=== PATIENT | female | born 1955 | race Caucasian/White ===

== ENCOUNTER 2018-08-20 23:43 | Emergency (ER) | payer OTHER ==
[2018-08-21 00:41] LABS: Absolute Neutrophil 3.6 K/uL (1.8-8.0); Basophils % 0.9 % (0-1.3); Eosinophils % 9.2 % (0-4.4); Hematocrit 31.7 % (36.0-45.0); Lymphocytes % 35.2 % (15.3-44.8); MCH 37.7 pg (27.0-35.0); MCV 106.1 fL (80-100); MPV 7.4 fL (7.6-11.3); Monocytes % 11.8 % (3.3-12.3); RBC Red Blood Cell Count 2.99 M/uL (3.86-4.86)
[2018-08-21] MEDS ORDERED: NA CHLORIDE 0.9% 1,000 ML ONE (00:41)
[2018-08-21 00:45] LABS: Protime INR 1.04
[2018-08-21 01:03] LABS: ALT/SGPT 39 U/L (12-78); AST/SGOT 25 U/L (15-37); Albumin 3.4 g/dL (3.4-5.0); Alkaline Phosphatase 70 U/L (45-117); BUN Blood Urea Nitrogen 13 mg/dL (7-18); Bicarbonate 24 mmol/L (21-32); Bilirubin Direct 0.1 mg/dL (0-0.2); Bilirubin Total 0.2 mg/dL (0.2-1.0); Glucose Level 102 mg/dL (74-106); Lipase 141 U/L (73-393); Magnesium 1.8 mg/dL (1.8-2.4); NT PRO-BNP 23 pg/mL (<125); Protein, Total 6.9 g/dL (6.4-8.2); Sodium Level 133 mmol/L (136-145); Troponin (Emerg Dept Use Only) < 0.02 ng/mL (0.0-0.045)
--- NOTE | 2018-08-21 01:29 | EDPHYS ---
Physician Documentation [facility] Name: Nelly Nava Age: 63 yrs Sex: Female : 1955 Arrival Date: 08/20/2018 Time: 23:44 Bed 7 Private MD: Yahaira Ness ED Physician Javi Vieyra HPI: 08/21 00:06 This 63 yrs old Female presents to ER via Ambulatory with complaints of art FLANK/CHEST WALL CONTRACTIONS. 00:06 The patient or guardian reports chest pain that is located primarily in the substernal art area, epigastric area, anterior chest wall. Onset: 3 day(s) ago. The patient presents with abdominal pain in the upper abdomen, in the lower abdomen, abdominal distention. Onset: The symptoms/episode began/occurred 3 day(s) ago. The pain does not radiate. The symptoms do not radiate. Historical: - Allergies: 00:07 PENICILLINS; bb 00:07 Sulfa (Sulfonamide Antibiotics); bb - Home Meds: 00:07 meloxicam 15 mg oral tab 1 tab once daily [Active]; citalopram 40 mg tab 1 tab once bb daily [Active]; irbesartan 150 mg oral tab 1 tab once daily [Active]; tramadol 50 mg Oral tab [Active]; alprazolam 0.5 mg Oral tab [Active]; Diazepam 0.5 mg Oral [Active]; Klor-Con M20 20 mEq Oral TbTQ 1 tab once daily [Active]; Prochlorperazine Maleate Oral [Active]; vitamin [Active]; vit B [Active]; Zofran (as hydrochloride) 4 mg Oral tab [Active]; dexamethasone 4 mg oral tab 2 times per day [Active]; Tylenol #3 Oral [Active]; Hydrocodone-Acetaminophen Oral [Active]; Symbicort inhalation inhalation [Active]; carvedilol oral oral [Active]; olanzapine oral oral [Active]; - PMHx: 00:07 Cancer, Breast; RA; bb - Immunization history:: Adult Immunizations up to date. - Social history:: Smoking status: Patient uses tobacco products, smokes one-half pack cigarettes per day, Patient/guardian denies using alcohol, street drugs. - Ebola Screening: : No symptoms or risks identified at this time No symptoms or risks identified at this time. - Family history:: not pertinent. ROS: 00:06 Constitutional: Negative for fever, chills, and weight loss, Eyes: Negative for injury, art pain, redness, and discharge, ENT: Negative for injury, pain, and discharge, Neck: Negative for injury, pain, and swelling, Cardiovascular: Negative for chest pain, palpitations, and edema, Respiratory: Negative for shortness of breath, cough, wheezing, and pleuritic chest pain, Abdomen/GI: Negative for abdominal pain, nausea, vomiting, diarrhea, and constipation, Back: Negative for injury and pain, : Negative for injury, bleeding, discharge, and swelling, MS/Extremity: Negative for injury and deformity, Skin: Negative for injury, rash, and discoloration, Neuro: Negative for headache, weakness, numbness, tingling, and seizure, Psych: Negative for depression, anxiety, suicide ideation, homicidal ideation, and hallucinations, Allergy/Immunology: Negative for hives, rash, and allergies, Endocrine: Negative for neck swelling, polydipsia, polyuria, polyphagia, and marked weight changes, Hematologic/Lymphatic: Negative for swollen nodes, abnormal bleeding, and unusual bruising. 00:06 MS/extremity: Negative for acute changes. Exam: 00:06 Constitutional: This is a well developed, well nourished patient who is awake, alert, art and in no acute distress. Head/Face: Normocephalic, atraumatic. Eyes: Pupils equal round and reactive to light, extra-ocular motions intact. Lids and lashes normal. Conjunctiva and sclera are non-icteric and not injected. Cornea within normal limits. Periorbital areas with no swelling, redness, or edema. ENT: Nares patent. No nasal discharge, no septal abnormalities noted. Tympanic membranes are normal and external auditory canals are clear. Oropharynx with no redness, swelling, or masses, exudates, or evidence of obstruction, uvula midline. Mucous membranes moist. Neck: Trachea midline, no thyromegaly or masses palpated, and no cervical lymphadenopathy. Supple, full range of motion without nuchal rigidity, or vertebral point tenderness. No Meningismus. Chest/axilla: Normal chest wall appearance and motion. Nontender with no deformity. No lesions are appreciated. Cardiovascular: Regular rate and rhythm with a normal S1 and S2. No gallops, murmurs, or rubs. Normal PMI, no JVD. No pulse deficits. Respiratory: Lungs have equal breath sounds bilaterally, clear to auscultation and percussion. No rales, rhonchi or wheezes noted. No increased work of breathing, no retractions or nasal flaring. Abdomen/GI: Soft, non-tender, with normal bowel sounds. No distension or tympany. No guarding or rebound. No evidence of tenderness throughout. Back: No spinal tenderness. No costovertebral tenderness. Full range of motion. Skin: Warm, dry with normal turgor. Normal color with no rashes, no lesions, and no evidence of cellulitis. MS/ Extremity: Pulses equal, no cyanosis. Neurovascular intact. Full, normal range of motion. Neuro: Awake and alert, GCS 15, oriented to person, place, time, and situation. Cranial nerves II-XII grossly intact. Motor strength 5/5 in all extremities. Sensory grossly intact. Cerebellar exam normal. Normal gait. Psych: Awake, alert, with orientation to person, place and time. Behavior, mood, and affect are within normal limits. Vital Signs: 00:02 Temp 98.0(O); lp1 00:07 BP 153 / 88; Pulse 78; Resp 16 S; Temp 98(O); Pulse Ox 98% on R/A; Weight 81.65 kg (R); bb Height 5 ft. 6 in. (167.64 cm) (R); Pain 7/10; 01:10 BP 112 / 75; Pulse 75; Resp 16; Pulse Ox 95% on R/A; lp1 02:00 BP 114 / 65; Pulse 72; Resp 13; Pulse Ox 94% on R/A; lp1 03:00 BP 116 / 64; Pulse 73; Resp 14; Pulse Ox 96% on R/A; lp1 00:07 Body Mass Index 29.05 (81.65 kg, 167.64 cm) MDM: 08/20 23:49 Patient medically screened. [facility] 08/21 00:08 Data reviewed: vital signs, nurses notes, lab test result(s), EKG, radiologic studies, [facility] CT scan, plain films. 08/21 00:05 Order name: Basic Metabolic Panel; Complete Time: 01:22 [facility] 08/21 00:05 Order name: CBC with Diff; Complete Time: 01: [facility] 08/21 00:05 Order name: LFT's; Complete Time: 01: [facility] 08/21 00:05 Order name: Magnesium; Complete Time: : [facility] 08/21 00:05 Order name: NT PRO-BNP; Complete Time: 01: [facility] 08/21 00:05 Order name: PT-INR; Complete Time: 01: [facility] 08/21 00:05 Order name: Troponin (emerg Dept Use Only); Complete Time: 01: [facility] 08/21 00:05 Order name: XRAY Chest (1 view) [facility] 08/21 00:05 Order name: Lipase; Complete Time: : [facility] 08/21 00:05 Order name: Type And Screen [facility] 08/21 00:05 Order name: CT Aorta for Dissection [facility] 08/21 00:05 Order name: Urine Culture [facility] 08/21 01:29 Order name: Urine Dipstick--Ancillary (enter results) ms 08/21 03:23 Order name: Antibody Identification EDMS 08/21 00:05 Order name: EKG; Complete Time: 00:07 [facility] 08/21 00:05 Order name: Cardiac monitoring; Complete Time: 00:07 [facility] 08/21 00:05 Order name: EKG - Nurse/Tech; Complete Time: 00:07 [facility] 08/21 00:05 Order name: IV Saline Lock; Complete Time: 00:40 [facility] 08/21 00:05 Order name: Labs collected and sent; Complete Time: 00:40 [facility] 08/21 00:05 Order name: O2 Per Protocol; Complete Time: 00:07 [facility] 08/21 00:05 Order name: O2 Sat Monitoring; Complete Time: 00:07 [facility] Administered Medications: 00:38 Drug: NS 0.9% 500 ml Volume: 500 ml; Route: IV; Rate: 1 bolus; Site: Port-a-cath; bp 01:10 Follow up: IV Status: Completed infusion; IV Intake: 500ml lp1 01:11 Drug: NS 0.9% 1000 ml Route: IV; Rate: 125 ml/hr; Site: Port-a-cath; lp1 03:18 Follow up: IV Status: IV converted to saline lock lp1 01:49 Drug: Aspirin 81 mg Route: PO; lp1 03:17 Follow up: Response: No adverse reaction lp1 03:18 Not Given (Patient Refused): fentaNYL (PF) 25 mcg IVP once lp1 03:18 Not Given (Patient Refused): fentaNYL (PF) 25 mcg IVP once lp1 03:18 Not Given (Patient Refused): Zofran 4 mg IVP once; over 2 minutes lp1 03:46 Drug: HEParin Flush 500 units Route: IVP; Site: Port-a-cath; lp1 03:46 Follow up: Response: Medication administered at discharge. lp1 Disposition: 08/21/18 01:28 Hospitalization ordered by Marlene Mendez for Observation. Preliminary diagnosis is Chest pain, unspecified. - Bed requested for Telemetry/MedSurg (observation). - Status is Observation. lp1 - Condition is Stable. - Problem is new. - Symptoms have improved. UTI on Admission? No Signatures: Dispatcher [employer] EDMS Britni Coello RN RN kl Anderson, Corey, MD MD cha Ballard, Brenda, RN RN bb Ansley Coronel RN RN [facility] Nilesh Desir RN RN bp Corrections: (The following items were deleted from the chart) 02:39 01:28 Hospitalization Ordered by Marlene Mendez MD for Observation. Preliminary diagnosis is Chest pain, unspecified. Bed requested for Telemetry/MedSurg (observation). Status is Observation. Condition is Stable. Problem is new. Symptoms have improved. UTI on Admission? No. art 03:55 02:39 08/21/2018 01:28 Hospitalization Ordered by Marlene Mendez MD for Observation. lp1 Preliminary diagnosis is Chest pain, unspecified. Bed requested for Telemetry/MedSurg (observation). Status is Observation. Condition is Stable. Problem is new. Symptoms have improved. UTI on Admission? No. kl
--- NOTE | 2018-08-21 01:29 | ER ---
Nurse's Notes [facility] Name: Nelly Nava Age: 63 yrs Sex: Female : 1955 Arrival Date: 08/20/2018 Time: 23:44 Bed 7 Private MD: Yahaira Ness Diagnosis: Chest pain, unspecified Presentation: 08/20 23:56 Presenting complaint: Patient states: she is having intermittent pain in her chest, bb left flank pain and pain all over, pt currently on chemo for breast cancer states she has been having this pain for a long time but it has gotten worse and she has had kidney failure in the past and wanted to be sure this was not kidney failure again. Transition of care: patient was not received from another setting of care. Onset of symptoms was August 14, 2018. Risk Assessment: Do you want to hurt yourself or someone else? Patient reports no desire to harm self or others. Initial Sepsis Screen: Does the patient meet any 2 criteria? No. Patient's initial sepsis screen is negative. Does the patient have a suspected source of infection? No. Patient's initial sepsis screen is negative. Care prior to arrival: None. 23:56 Method Of Arrival: Ambulatory bb 23:56 Acuity: TERRY 2 bb Historical: - Allergies: 08/21 00:07 PENICILLINS; bb 00:07 Sulfa (Sulfonamide Antibiotics); bb - Home Meds: 00:07 meloxicam 15 mg oral tab 1 tab once daily [Active]; citalopram 40 mg tab 1 tab once bb daily [Active]; irbesartan 150 mg oral tab 1 tab once daily [Active]; tramadol 50 mg Oral tab [Active]; alprazolam 0.5 mg Oral tab [Active]; Diazepam 0.5 mg Oral [Active]; Klor-Con M20 20 mEq Oral TbTQ 1 tab once daily [Active]; Prochlorperazine Maleate Oral [Active]; vitamin [Active]; vit B [Active]; Zofran (as hydrochloride) 4 mg Oral tab [Active]; dexamethasone 4 mg oral tab 2 times per day [Active]; Tylenol #3 Oral [Active]; Hydrocodone-Acetaminophen Oral [Active]; Symbicort inhalation inhalation [Active]; carvedilol oral oral [Active]; olanzapine oral oral [Active]; - PMHx: 00:07 Cancer, Breast; RA; bb - Immunization history:: Adult Immunizations up to date. - Social history:: Smoking status: Patient uses tobacco products, smokes one-half pack cigarettes per day, Patient/guardian denies using alcohol, street drugs. - Ebola Screening: : No symptoms or risks identified at this time No symptoms or risks identified at this time. - Family history:: not pertinent. Screenin:05 Abuse screen: Denies threats or abuse. Denies injuries from another. Nutritional lp1 screening: No deficits noted. Tuberculosis screening: No symptoms or risk factors identified. Fall Risk None identified. Assessment: 00:03 General: Appears uncomfortable, Behavior is anxious. Pain: Complains of pain in left lp1 low back Pain radiates to back and chest Pain currently is 7 out of 10 on a pain scale. Quality of pain is described as sharp. Neuro: Level of Consciousness is awake, alert, obeys commands, Oriented to person, place, time, situation. Cardiovascular: Patient's skin is warm and dry. Edema present in left upper arm related to lymphedema. Respiratory: Respiratory effort is even, unlabored, Breath sounds are clear bilaterally. GI: Abdomen is non-distended. : No signs and/or symptoms were reported regarding the genitourinary system. EENT: No signs and/or symptoms were reported regarding the EENT system. Derm: Skin is intact, is thin, Skin is dry, Skin is pale. Musculoskeletal: Circulation, motion, and sensation intact. 01:09 Reassessment: Patient appears in no apparent distress at this time. Patient assisted to [facility] bathroom at this time. 01:21 Reassessment: Peripheral IV accessed for imaging. lp1 02:30 Reassessment: Patient and/or family updated on plan of care and expected duration. Pain lp1 level reassessed. Patient is alert, oriented x 3, equal unlabored respirations, skin warm/dry/pink. Patient states she would rather go home that be hospitalized Patient states feeling better. 03:00 Reassessment: Dr. Alberto at bedside. lp1 03:31 Reassessment: See [facility] for discharge note. lp1 Vital Signs: 00:02 Temp 98.0(O); lp1 00:07 BP 153 / 88; Pulse 78; Resp 16 S; Temp 98(O); Pulse Ox 98% on R/A; Weight 81.65 kg (R); bb Height 5 ft. 6 in. (167.64 cm) (R); Pain 7/10; 01:10 BP 112 / 75; Pulse 75; Resp 16; Pulse Ox 95% on R/A; lp1 02:00 BP 114 / 65; Pulse 72; Resp 13; Pulse Ox 94% on R/A; lp1 03:00 BP 116 / 64; Pulse 73; Resp 14; Pulse Ox 96% on R/A; lp1 00:07 Body Mass Index 29.05 (81.65 kg, 167.64 cm) bb ED Course: 08/20 23:44 Patient arrived in ED. am2 23:44 Yahaira Ness MD is Private Physician. am2 23:47 Nilesh Desir, RODOLFO is Primary Nurse. bp 23:49 Javi Vieyra MD is Attending Physician. [facility] 08/21 00:01 Triage completed. bb 00:02 EKG done, by ED staff, reviewed by Javi Vieyra MD. lp1 00:05 Arm band placed on. lp1 00:05 Patient has correct armband on for positive identification. Placed in gown. Bed in low lp1 position. Call light in reach. quality assurance monitor chassis on. Pulse ox on. NIBP on. 00:30 Accessed Port-a-Cath. using accessed w/ # 20 Culp needle, ,sterile technique, per [address] protocol. Clean \T\ dry. Dressing intact. Good blood return. Flushes easily. 00:52 Ansley Coronel, RN is Primary Nurse. lp1 00:57 Radiology exam delayed due to IV insertion attempt and/or patient not having kw appropriate IV at this time. 01:01 X-ray completed. Portable x-ray completed in exam room. Patient tolerated procedure kw well. 01:02 XRAY Chest (1 view) In Process Unspecified. EDMS 01:11 Urine collected: clean catch specimen, clear. lp1 01:20 Inserted saline lock: 20 gauge in right antecubital area, using aseptic technique. lp1 01:26 Marlene Mendez MD is Hospitalizing Provider. art 01:44 CT Aorta for Dissection In Process Unspecified. EDMS 03:19 No provider procedures requiring assistance completed. lp1 03:53 Patient admitted, IV remains in place. lp1 Administered Medications: 00:38 Drug: NS 0.9% 500 ml Volume: 500 ml; Route: IV; Rate: 1 bolus; Site: Port-a-cath; bp 01:10 Follow up: IV Status: Completed infusion; IV Intake: 500ml lp1 01:11 Drug: NS 0.9% 1000 ml Route: IV; Rate: 125 ml/hr; Site: Port-a-cath; lp1 03:18 Follow up: IV Status: IV converted to saline lock lp1 01:49 Drug: Aspirin 81 mg Route: PO; lp1 03:17 Follow up: Response: No adverse reaction lp1 03:18 Not Given (Patient Refused): fentaNYL (PF) 25 mcg IVP once lp1 03:18 Not Given (Patient Refused): fentaNYL (PF) 25 mcg IVP once lp1 03:18 Not Given (Patient Refused): Zofran 4 mg IVP once; over 2 minutes lp1 03:46 Drug: HEParin Flush 500 units Route: IVP; Site: Port-a-cath; lp1 03:46 Follow up: Response: Medication administered at discharge. lp1 Intake: 01:10 IV: 500ml; Total: 500ml. lp1 Outcome: 01:28 Decision to Hospitalize by Provider. art 03:15 Admitted to Med/surg lp1 03:15 Condition: stable 03:15 Instructed on the need for admit. 03:30 Patient left the ED. lp1 Signatures: Dispatcher [employer] EDCT Javi Vieyra MD MD cha Ballard, Brenda, RN RN Pau Alvarez Laura, RN RN lp1 Linh Barajas am2 Nilesh Desir RN RN Dory Barrios cc3 Corrections: (The following items were deleted from the chart) 04:01 03:55 Patient left the ED. lp1 lp1
[2018-08-21 01:48] LABS: Urine Blood TRACE (NEG); Urine Glucose NEGATIVE (NEG); Urine Protein NEGATIVE (NEG); Urine Specific Gravity <1.005 (1.005-1.030)
[2018-08-21] MEDS ORDERED: ASPIRIN EC 81 MG TAB PO ONE (01:53)
--- NOTE | 2018-08-21 03:22 | P.SSS ---
Patient History Date of Service: 08/21/18 Reason for admission: Generalized pain History of Present Illness: Ms Nava is a 63-year-old woman with history of COPD, hypertension, breast cancer who is under chemotherapy treatment, follow-up by Dr. Shoemaker. She came to ER complaining diffuse plan generalized cramping pain. She states that the pain may be in any parts of her body, including abdomen, left or right flank. Last night she had the pain located in her chest lasting for a few minutes, and resolved by itself. She denied any shortness of breath, nausea or vomiting , palpitation or sweating episode associated with the pain. The patient says that she start a new chemotherapy pill and since so she start having these cramping and pain. EKG shows normal sinus rate without ST-T abnormality. Lab work showed normal WBC count, normal troponin I, UA shows trace leukocyte esterase, and trace blood. CT dissection, was negative for aortic dissection or PE, remarkable for diverticulosis without diverticulitis. Allergies Penicillins Allergy (Verified 01/02/18 10:22) Itching/Hives/Rash/throat swelling Sulfa (Sulfonamide Antibiotics) Allergy (Verified 01/02/18 10:22) Hives, Itching, Throat Swelling Home medications list reviewed: Yes Home Medications: ALPRAZolam [Xanax*] 0.5 mg PO DAILY 09/20/17 Citalopram Hydrobromide [Celexa] 40 mg PO DAILY 09/20/17 Tramadol HCl [Ultram] 50 mg PO TID PRN 09/20/17 Ondansetron HCl [Zofran] 4 mg PO TID PRN #15 tablet 10/04/17 Acetaminophen with Codeine [Tylenol with Codeine #4 Tablet] 1 each PO PRN Dexamethasone [Decadron] 4 mg PO DAILY 01/02/18 Irbesartan [Avapro] 150 mg PO DAILY 01/02/18 Meloxicam 15 mg PO DAILY 01/02/18 Multivitamin [Multivitamins] 1 each PO DAILY 01/02/18 Potassium Chloride [Klor-Con M20] 20 meq PO DAILY 01/02/18 Prochlorperazine [Compazine] 5 mg PO PRN PRN 01/02/18 diazePAM [Diazepam] 5 mg PO DAILY 01/02/18 Ciprofloxacin HCl [Cipro 250 MG Tablet*] 250 mg PO BID #6 tab 08/21/18 - Past Medical/Surgical History Diabetic: No -: HTN -: COPD -: Tobacco abuse -: Left Breast CA -: RA -: Port-A-Cath placement -: Appendectomy -: Cervix removal Psychosocial/ Personal History: Patient is single. She has 2 children. She previously worked for [employer]. - Family History Mother -: Diabetes - Social History Smoking Status: Current every day smoker Counseled patient to stop smoking for: less than 10 minutes Alcohol use: No CD- Drugs: No Caffeine use: No Place of Residence: Home Review of Systems 10-point ROS is otherwise unremarkable Physical Examination - Physical Exam General: Alert, In no apparent distress HEENT: Atraumatic, PERRLA, Mucous membr. moist/pink, EOMI, Sclerae nonicteric Neck: Supple, 2+ carotid pulse no bruit, No LAD, Without JVD or thyroid abnormality Respiratory: Normal air movement, Other (Course bilaterally to auscultation) Cardiovascular: Regular rate/rhythm, Normal S1 S2 Gastrointestinal: Normal bowel sounds, No tenderness Musculoskeletal: No tenderness Integumentary: No rashes Neurological: Normal speech, Normal strength at 5/5 x4 extr, Normal tone, Normal affect Lymphatics: No axilla or inguinal lymphadenopathy - Studies Laboratory Data (last 24 hrs) 08/21/18 00:30: PT 12.3, INR 1.04 08/21/18 00:30: WBC 8.4, Hgb 11.3 L, Hct 31.7 L, Plt Count 211 08/21/18 00:30: Sodium 133 L, Potassium 4.0, BUN 13, Creatinine 1.00, Glucose 102, Magnesium 1.8, Total Bilirubin 0.2, AST 25, ALT 39, Alkaline Phosphatase 70 , Lipase 141 Treatment Summary: Assessment: 1. Atypical chest pain 2. Generalized spasm 3. Uncomplicated UTI 4. Breast cancer 5. COPD 6. Tobacco abuse 7. Hypertension Plan: The patient chest pain is atypical and in nature. Troponin I is negative, EKG shows no obvious ST-T abnormalities. Her chest pain is part of a diffuse and generalized cramping muscle pain, that she recurrently has randomly in her whole body. UA is abnormal consistent with UTI. At this point the patient will be discharged home, with hypertension for ciprofloxacin 250 mg to take by mouth twice a day for 3 days for uncomplicated UTI. Resume her home medication , and follow-up with Dr. Shoemaker in the next couple of days to evaluate the progress of her symptoms. The patient will be discharged in stable condition. - Disposition Disposition: ROUTINE DISCHARGE Condition: GOOD Diet: AHA Activity: Ad kyung
[2018-08-21] MEDS ORDERED: HEPARIN 500 UNIT/5 ML SYR IV ONE (03:43)
[2018-08-21 04:11] VITALS: BP 116/64; TEMP 98; O2SAT 96
--- NOTE | 2018-08-21 08:14 | RAD REPORT ---
EXAM DESCRIPTION: RAD - Chest Single View - 08/21/2018 1:04 am CLINICAL HISTORY: Cough;Chest pain Chest pain. COMPARISON: Chest Single View dated 10/03/2017; Chest Single View dated 09/23/2017; Chest Pa And Lat (2 Views) dated 09/20/2017 FINDINGS: Portable technique limits examination quality. The lungs are grossly clear. The heart is normal in size. No displaced fractures.Right-sided venous c atheter has tip in the SVC. IMPRESSION: No acute intrathoracic process suspected.
--- NOTE | 2018-08-21 08:17 | RAD REPORT ---
EXAM DESCRIPTION: CT - Angio Aorta For Dissection - 08/21/2018 1:44 am CLINICAL HISTORY: Chest pain radiating to the back. CHEST PAIN COMPARISON: Thorax Wo Con dated 07/28/2018 TECHNIQUE: CT angiography of the aorta was performed with MIPs. All CT scans are performed using dose optimization technique as appropriate and may include automated exposure control or mA/KV adjustment according to patient size. FINDINGS: A left aortic arch is present with normal branching pattern of the great vessels.No acute aortic finding is seen such as aneurysm, penetrating ulcer or dissection. The celiac axis, SMA, PEGGY and renal arteries are patent. No evidence of pulmonary embolism. The lungs are emphysematous but grossly clear. Small subpleural areas of nodularity in the left base are noted, stable since recent CT chest assessment. The liver demonstrates no focal mass or biliary dilatation.The spleen, pancreas, adrenal glands and k idneys are within normal limits for arterial phase imaging. No bowel obstruction, free fluid or abscess.Sigmoid diverticulosis coli is present without diverticul itis.No pathologic enlarged lymphadenopathy identified. No fracture or worrisome bone lesion seen.Mild spondylosis lower lumbar spine. IMPRESSION: No acute aortic finding is demonstrated. Sigmoid diverticulosis coli without diverticulitis.
--- NOTE | 2018-08-22 06:58 | EKG ---
Test Date: 2018-08-20 Test Time: 23:56:39 Veneer Joiner: KENAN MEASUREMENT RESULTS: Intervals: Rate: 74 MA: 198 QRSD: 98 QT: 420 QTc: 466 [place]: P: 58 MA: 198 QRS: 18 T: 36 INTERPRETIVE STATEMENTS: Normal sinus rhythm Incomplete right bundle branch block Borderline ECG Compared to ECG 10/03/2017 08:59:44 Incomplete right bundle-branch block now present Atrial premature complex(es) no longer present Electronically Signed On 08-22-18 06:55:07 CDT by Ranjan Wang
== END 2018-08-21 03:58 | disposition home or self-care (01) ==
LOC: ER 23:43 → UNDOADMOB 08-21 01:56 → ERHOLD 08-21 01:56 → ER 08-21 03:58
DX: N39.0 Urinary tract infection, site not specified (principal); R25.2 Cramp and spasm; I10 Essential (primary) hypertension; J44.9 Chronic obstructive pulmonary disease, unspecified; C50.919 Malignant neoplasm of unspecified site of unspecified female breast; Z72.0 Tobacco use; Z88.0 Allergy status to penicillin; Z88.2 Allergy status to sulfonamides
CPT/HCPCS: 36415; 71045; 71275; 74175; 80048; 80076; 81003; 83690; 83735; 83880; 84484; 85025; 85610; 86850; 86870; 86900; 86901; 87086; 87088; 93005; 96361; 96374; 99285; J1642; J7030; Q9967

== ENCOUNTER 2019-06-14 18:33 | Emergency (ER) | payer OTHER ==
[2019-06-14] MEDS ORDERED: LIDOCAINE 2% W/EPI 1:200,000 MPF 20 ML VIAL IM ONE (19:38)
[2019-06-14] MEDS ORDERED: dexAMETHasone 10 MG/ML VIAL ONE (19:38)
[2019-06-14 20:16] LABS: Absolute Lymphocytes (CBC) 2.1 K/uL (0.7-4.9); Basophils % 0.5 % (0-1.3); Eosinophils % 0.1 % (0-4.4); Lymphocytes % 11.7 % (15.3-44.8); MPV 7.8 fL (7.6-11.3); Monocytes % 9.3 % (3.3-12.3); RBC Red Blood Cell Count 3.81 M/uL (3.86-4.86)
[2019-06-14] MEDS ORDERED: CLINDAMYCIN 900MG/D5W 900 MG/50 ML IVPB IV ONE (20:23)
[2019-06-14] MEDS ORDERED: NA CHLORIDE 0.9% 2,000 ML ONE (20:23)
[2019-06-14 20:30] LABS: Albumin 4.1 g/dL (3.4-5.0); Bilirubin Total 0.5 mg/dL (0.2-1.0); Potassium 5.2 mmol/L (3.5-5.1); Protein, Total 8.4 g/dL (6.4-8.2)
--- NOTE | 2019-06-14 20:32 | EDPHYS ---
Physician Documentation [facility] Name: Nelly Nava Age: 63 yrs Sex: Female : 1955 Arrival Date: 06/14/2019 Time: 18:34 Bed 23 Private MD: ED Physician Mickey Hassan HPI: 06/14 19:56 This 63 yrs old Female presents to ER via Wheelchair with complaints of ps1 Facial Swelling. 19:56 patient has a history of breast cancer with mets on chemo presenting with right facial ps1 swelling. Pt of Dr. Shoemaker.Patient states that she has not had chemo for a month. Pain and numbness started yesterday and localized to right mandible. She additionally has a right gingival abscess. No fever. . Historical: - Allergies: 18:39 PENICILLINS; la1 18:39 Sulfa (Sulfonamide Antibiotics); la1 - PMHx: 18:39 Cancer, Breast; RA; Hypertension; Depression; la1 - Immunization history:: Adult Immunizations up to date. - Social history:: Smoking status: Patient uses tobacco products, smokes one-half pack cigarettes per day. - Ebola Screening: : No symptoms or risks identified at this time. ROS: 19:56 Constitutional: Negative for fever, chills, and weight loss, Eyes: Negative for injury, ps1 pain, redness, and discharge, Cardiovascular: Negative for chest pain, palpitations, and edema, Respiratory: Negative for shortness of breath, cough, wheezing, and pleuritic chest pain, Abdomen/GI: Negative for abdominal pain, nausea, vomiting, diarrhea, and constipation, MS/Extremity: Negative for injury and deformity, Skin: Negative for injury, rash, and discoloration, Neuro: Negative for headache, weakness, numbness, tingling, and seizure. 19:56 ENT: Positive for right facial swelling. Exam: 19:56 Constitutional: This is a well developed, well nourished patient who is awake, alert, ps1 and in no acute distress. Head/Face: Normocephalic, atraumatic. Eyes: Pupils equal round and reactive to light, extra-ocular motions intact. Lids and lashes normal. Conjunctiva and sclera are non-icteric and not injected. Cardiovascular: Regular rate and rhythm. No gallops, murmurs, or rubs. Normal PMI, no JVD. No pulse deficits. Respiratory: Lungs have equal breath sounds bilaterally, clear to auscultation and percussion. No rales, rhonchi or wheezes noted. No increased work of breathing, no retractions or nasal flaring. Abdomen/GI: Soft, non-tender, with normal bowel sounds. No distension or tympany. No guarding or rebound. No evidence of tenderness throughout. Skin: Warm, dry with normal turgor. Normal color with no rashes, no lesions, and no evidence of cellulitis. MS/ Extremity: Pulses equal, no cyanosis. Neurovascular intact. Full, normal range of motion. 19:56 ENT: Mouth: drooling, is not appreciated, Dental exam: abscess, that is mild, specifically in the lower right third molar (#32), gum swelling, that is mild, specifically in the lower right third molar (#32). 19:56 Neuro: Sensation: numbness, that is mild, of the right jaw. Vital Signs: 18:37 BP 117 / 76; Pulse 115; Resp 16; Temp 99.6; Pulse Ox 94% on R/A; Weight 74.84 kg; la1 Height 5 ft. 6 in. (167.64 cm); 20:28 BP 119 / 70; Pulse 94; Resp 17; Temp 99.6(O); Pulse Ox 95% on R/A; rv 21:28 BP 146 / 74; Pulse 88; Resp 17; Temp 99.2; Pulse Ox 96% on R/A; rv 18:37 Body Mass Index 26.63 (74.84 kg, 167.64 cm) la1 MDM: 19:43 Patient medically screened. ps1 06/14 19:27 Order name: CBC with Diff 06/14 19:27 Order name: Lactate 06/14 19:27 Order name: Procalcitonin 06/14 19:27 Order name: CMP 06/14 20:19 Order name: Blood Culture* rv 06/14 19:27 Order name: Accucheck; Complete Time: 21:33 ps1 06/14 19:27 Order name: Cardiac monitoring; Complete Time: 20:25 ps1 06/14 19:27 Order name: EKG - Nurse/Tech; Complete Time: 20:25 ps1 06/14 19:27 Order name: IV Saline Lock - Large Bore; Complete Time: 20:25 ps1 06/14 19:27 Order name: Labs collected and sent; Complete Time: 20:25 ps1 06/14 19:27 Order name: O2 Per Protocol; Complete Time: 20:25 ps1 06/14 19:27 Order name: O2 Sat Monitoring; Complete Time: 20:25 ps1 Administered Medications: 20:05 Drug: Decadron 10 mg Route: IM; Site: right deltoid; rv 21:32 Follow up: Response: No adverse reaction rv 20:16 Drug: NS 0.9% (30 ml/kg) 30 ml/kg Route: IV; Rate: bolus; Site: Port-a-cath; rv 21:33 Follow up: IV Status: Completed infusion rv 20:16 Drug: Clindamycin 900 mg Route: IVPB; Infused Over: 30 mins; Site: Port-a-cath; rv 21:32 Follow up: IV Status: Completed infusion; IV Intake: 50ml rv Disposition: 06/14/19 20:30 Discharged to Home. Impression: right dental abscess, right facial swelling. - Condition is Stable. - Discharge Instructions: Dental Abscess. - Prescriptions for Clindamycin HCl 300 mg Oral Capsule - take 1 capsule by ORAL route every 6 hours for 10 days; 40 capsule. Tylenol- Codeine #3 300-30 mg Oral Tablet - take 2 tablet by ORAL route every 6 hours As needed; 30 tablet. Zofran 4 mg Oral Tablet - take 1 tablet by ORAL route every 12 hours As needed; 20 tablet. Medrol (Mundo) 4 mg Oral Tablets, Dose Pack - take 1 tablet by ORAL route as directed - follow package instructions; 1 packet. - Medication Reconciliation Form, Thank You Letter, Antibiotic Education, Prescription Opioid Use form. - Follow up: Yahaira Ness MD; When: 48 Hours; Reason: Further diagnostic work-up, Re-evaluation by your physician. Follow up: Emergency Department; When: As needed; Reason: Fever > 102 F, Trouble breathing, Worsening of condition. - Problem is new. - Symptoms have improved. Signatures: Dispatcher [employer] EDMS Shreyas Tolbert RN RN la1 Mickey Hassan MD MD ps1 Kirt Livingston RN RN rv Corrections: (The following items were deleted from the chart) 21:33 20:30 06/14/2019 20:30 Discharged to Home. Impression: right dental abscess; right rv facial swelling. Condition is Stable. Forms are Medication Reconciliation Form, Thank You Letter, Antibiotic Education, Prescription Opioid Use. Follow up: Yahaira Wilkinson; When: 48 Hours; Reason: Further diagnostic work-up, Re-evaluation by your physician. Follow up: Emergency Department; When: As needed; Reason: Fever > 102 F, Trouble breathing, Worsening of condition. Problem is new. Symptoms have improved. ps1
--- NOTE | 2019-06-14 20:32 | ER ---
Nurse's Notes [facility] Name: Nelly Nava Age: 63 yrs Sex: Female : 1955 Arrival Date: 06/14/2019 Time: 18:34 Bed 23 Private MD: Diagnosis: right dental abscess;right facial swelling Presentation: 06/14 18:39 Presenting complaint: Patient states: I started feeling bad with dizziness, fatigue, la1 chills yesterday and when I woke up I noticed swelling to the right side of my face, airway patent, able to speak in full sentences. Transition of care: patient was not received from another setting of care. Onset of symptoms was June 14, 2019. Risk Assessment: Do you want to hurt yourself or someone else? Patient reports no desire to harm self or others. Initial Sepsis Screen: Does the patient meet any 2 criteria? HR > 90 bpm. Does the patient have a suspected source of infection? No. Patient's initial sepsis screen is negative. Care prior to arrival: None. 18:39 Method Of Arrival: Wheelchair la1 18:39 Acuity: TERRY 2 la1 Historical: - Allergies: 18:39 PENICILLINS; la1 18:39 Sulfa (Sulfonamide Antibiotics); la1 - PMHx: 18:39 Cancer, Breast; RA; Hypertension; Depression; la1 - Immunization history:: Adult Immunizations up to date. - Social history:: Smoking status: Patient uses tobacco products, smokes one-half pack cigarettes per day. - Ebola Screening: : No symptoms or risks identified at this time. Screenin:28 Abuse screen: Denies threats or abuse. Denies injuries from another. Nutritional rv screening: No deficits noted. Tuberculosis screening: No symptoms or risk factors identified. Fall Risk None identified. Assessment: 20:27 General: Appears in no apparent distress. uncomfortable, Behavior is calm, cooperative. rv Pain: Complains of pain in right jaw. Neuro: Level of Consciousness is awake, alert, obeys commands, Oriented to person, place, time, situation. Cardiovascular: Patient's skin is warm and dry. Respiratory: Airway is patent. GI: No signs and/or symptoms were reported involving the gastrointestinal system. : No signs and/or symptoms were reported regarding the genitourinary system. EENT: No signs and/or symptoms were reported regarding the EENT system. Derm: Skin is intact. Musculoskeletal: Swelling present in right jaw. Vital Signs: 18:37 BP 117 / 76; Pulse 115; Resp 16; Temp 99.6; Pulse Ox 94% on R/A; Weight 74.84 kg; la1 Height 5 ft. 6 in. (167.64 cm); 20:28 BP 119 / 70; Pulse 94; Resp 17; Temp 99.6(O); Pulse Ox 95% on R/A; rv 21:28 BP 146 / 74; Pulse 88; Resp 17; Temp 99.2; Pulse Ox 96% on R/A; rv 18:37 Body Mass Index 26.63 (74.84 kg, 167.64 cm) la1 ED Course: 18:34 Patient arrived in ED. as 18:39 Arm band placed on left wrist. la1 18:40 Triage completed. la1 18:54 Kirt Livingston RN is Primary Nurse. rv 19:01 Mickey Hassan MD is Attending Physician. ps1 20:26 Assist provider with I \T\ D: of an abscess on right mouth Set up I\T\D tray. Performed by rv Mickey Hassan MD Patient tolerated well. Accessed Port-a-Cath. using accessed w/ # 20 Culp needle, ,sterile technique, per hospital protocol. Clean \T\ dry. Dressing intact. Good blood return. Flushes easily. 20:28 Patient has correct armband on for positive identification. Placed in gown. Bed in low rv position. Call light in reach. Side rails up X 1. Adult w/ patient. locum tenens on. Pulse ox on. NIBP on. 20:30 Yahaira Ness MD is Referral Physician. ps1 21:32 IV discontinued, intact, bleeding controlled, No redness/swelling at site. Pressure rv dressing applied, heparin flush done. Administered Medications: 20:05 Drug: Decadron 10 mg Route: IM; Site: right deltoid; rv 21:32 Follow up: Response: No adverse reaction rv 20:16 Drug: NS 0.9% (30 ml/kg) 30 ml/kg Route: IV; Rate: bolus; Site: Port-a-cath; rv 21:33 Follow up: IV Status: Completed infusion rv 20:16 Drug: Clindamycin 900 mg Route: IVPB; Infused Over: 30 mins; Site: Port-a-cath; rv 21:32 Follow up: IV Status: Completed infusion; IV Intake: 50ml rv Intake: 21:32 IV: 50ml; Total: 50ml. rv Outcome: 20:30 Discharge ordered by . ps1 21:30 Discharged to home ambulatory. rv 21:30 Condition: improved 21:30 Discharge instructions given to patient, Instructed on discharge instructions, follow up and referral plans. medication usage, Demonstrated understanding of instructions, follow-up care, medications, Prescriptions given X 4. 21:33 Patient left the ED. rv Signatures: Rajwinder Stahl Lee RN RN la1 Mickey Hassan MD MD ps1 Kirt Livingston RN RN rv
[2019-06-14] MEDS ORDERED: HYDROCODONE/APAP 10/325 TAB ONE (20:59)
[2019-06-14] MEDS ORDERED: HEPARIN 500 UNIT/5 ML SYR IV ONE (21:37)
[2019-06-14 22:07] VITALS: BP 146/74; TEMP 99.2; O2SAT 96
--- NOTE | 2019-06-15 10:53 | EKG ---
Test Date: 2019-06-14 Test Time: 20:34:28 Real Estate Legal Assistant: RAYNT MEASUREMENT RESULTS: Intervals: Rate: 93 DE: 178 QRSD: 94 QT: 338 QTc: 420 Sterling: P: 38 DE: 178 QRS: 12 T: 49 INTERPRETIVE STATEMENTS: Normal sinus rhythm Normal ECG Compared to ECG 08/20/2018 23:56:39 Incomplete right bundle-branch block no longer present Electronically Signed On 06-15-19 10:52:36 CDT by Viktor Thornton
== END 2019-06-14 21:33 | disposition home or self-care (01) ==
LOC: ER 18:33
DX: K04.7 Periapical abscess without sinus (principal); Z88.0 Allergy status to penicillin; Z88.2 Allergy status to sulfonamides; Z85.3 Personal history of malignant neoplasm of breast
CPT/HCPCS: 96365; 96368; 93005; 87040; 85025; 36415; 83605; 80053; 84145; 96372; 99285; J1100; J1642; J7030

== ENCOUNTER 2019-11-16 04:23 | Emergency (ER) | payer OTHER ==
--- OUTSIDE RECORDS SUMMARY | 2019-11-16 04:25 | XMS REPORT ---
:1955 [facility] Address [address] [place] [address] Dr. Tirado [address] [place] [id number] Care Team Providers Name Role Phone Unavailable Unavailable Unavailable Problems This patient has no known problems. Allergies, Adverse Reactions, Alerts This patient has no known allergies or adverse reactions. Medications This patient has no known medications.
[2019-11-16] MEDS ORDERED: FAMOTIDINE 20 MG/2 ML VIAL IV ONE (05:05)
[2019-11-16] MEDS ORDERED: METHYLPREDNISOLONE 125 MG INJ ONE (05:05)
[2019-11-16] MEDS ORDERED: DIPHENHYDRAMINE 50 MG/ML VIAL ONE (05:05)
--- NOTE | 2019-11-16 05:21 | ER ---
Nurse's Notes [facility] Name: Nelly Nava Age: 64 yrs Sex: Female : 1955 Arrival Date: 11/16/2019 Time: 04:25 Bed 13 Private MD: Diagnosis: Urticaria, unspecified Presentation: 11/16 04:32 Presenting complaint: Patient states: C/O of rash that started a couple of days ago wh with itchiness. Pt already taking benadryl. Transition of care: patient was not received from another setting of care. Onset of symptoms was November 14, 2019. Risk Assessment: Do you want to hurt yourself or someone else? Patient reports no desire to harm self or others. Initial Sepsis Screen: Does the patient meet any 2 criteria? No. Patient's initial sepsis screen is negative. Does the patient have a suspected source of infection? No. Patient's initial sepsis screen is negative. Care prior to arrival: None. 04:32 Method Of Arrival: Ambulatory 04:32 Acuity: TERRY 4 Historical: - Allergies: 04:34 Sulfa (Sulfonamide Antibiotics); 04:34 PENICILLINS; - Home Meds: 04:34 Unable to obtain [Active]; - PMHx: 04:34 Cancer, Breast; Depression; Hypertension; RA; - PSHx: 04:34 None; - Immunization history:: Adult Immunizations up to date. - Social history:: Smoking status: Patient uses tobacco products. - Ebola Screening: : Patient negative for fever greater than or equal to 101.5 degrees Fahrenheit, and additional compatible Ebola Virus Disease symptoms Patient denies exposure to infectious person. - Family history:: not pertinent. - Hospitalizations: : No recent hospitalization is reported. Screenin:34 Abuse screen: Denies threats or abuse. Denies injuries from another. Nutritional screening: No deficits noted. Tuberculosis screening: No symptoms or risk factors identified. Fall Risk None identified. Assessment: 04:37 General: Appears in no apparent distress. Behavior is calm, cooperative, appropriate wh for age. Pain: Denies pain. Neuro: Level of Consciousness is awake, alert, obeys commands, Oriented to person, place, time, situation, Appropriate for age. Cardiovascular: Capillary refill < 3 seconds. Respiratory: Airway is patent Respiratory effort is even, unlabored, Respiratory pattern is regular, symmetrical. GI: Abdomen is flat, non-distended. : No signs and/or symptoms were reported regarding the genitourinary system. EENT: No signs and/or symptoms were reported regarding the EENT system. Derm: Rash noted that is itchy, urticaria. Musculoskeletal: Circulation, motion, and sensation intact. 05:17 Reassessment: Patient appears in no apparent distress at this time. No changes from previously documented assessment. Patient and/or family updated on plan of care and expected duration. Pain level reassessed. Patient is alert, oriented x 3, equal unlabored respirations, skin warm/dry/pink. Vital Signs: 04:38 BP 130 / 91; Pulse 87; Resp 18; Temp 98.3; Pulse Ox 97% ; Weight 84.82 kg; Height 5 ft. 6 in. (167.64 cm); 05:17 BP 140 / 80; Pulse 72; Resp 18; Pulse Ox 97% on R/A; 04:38 Body Mass Index 30.18 (84.82 kg, 167.64 cm) ED Course: 04:25 Patient arrived in ED. [id number] 04:31 Blair Hill is Primary Nurse. 04:33 Triage completed. 04:34 Patient has correct armband on for positive identification. Bed in low position. Call light in reach. Side rails up X 1. Pulse ox on. NIBP on. 04:34 Arm band placed on right wrist. 04:38 Jorge Gonzalez MD is Attending Physician. rn 05:00 Inserted saline lock: 22 gauge in right antecubital area, using aseptic technique. 05:36 No provider procedures requiring assistance completed. IV discontinued, intact, bleeding controlled, No redness/swelling at site. Administered Medications: 05:09 Drug: SOLU-Medrol 125 mg Route: IVP; Site: right antecubital; 05:35 Follow up: Response: No adverse reaction 05:12 Drug: Pepcid 20 mg Route: IVP; Site: right antecubital; 05:35 Follow up: Response: No adverse reaction 05:15 Drug: Benadryl 12.5 mg Route: IVP; Site: right antecubital; 05:36 Follow up: Response: No adverse reaction Outcome: 05:20 Discharge ordered by . rn 05:36 Discharged to home ambulatory. 05:36 Condition: stable 05:36 Discharge instructions given to patient, Instructed on discharge instructions, follow up and referral plans. medication usage, POC Demonstrated understanding of instructions, follow-up care, medications, POC Prescriptions given X 2. 05:37 Patient left the ED. Signatures: Jorge Gonzalez MD MD rn Habalo, Winsy Colette Romero jg7
--- NOTE | 2019-11-16 05:21 | EDPHYS ---
Physician Documentation [facility] [place] [place] Name: Nelly Nava Age: 64 yrs Sex: Female : 1955 Arrival Date: 11/16/2019 Time: 04:25 Bed 13 Private MD: ED Physician Jorge Gonzalez HPI: 11/16 04:48 This 64 yrs old Female presents to ER via Ambulatory with complaints of Rash. rn 04:48 The patient's rash thought to be caused by medication. The rash is located on the body rn diffusely. The rash can be described as erythematous, urticarial. Onset: The symptoms/episode began/occurred 5 day(s) ago. Associated signs and symptoms: Pertinent positives: itching, Pertinent negatives: fever, swelling of lips, swelling of throat, swelling of tongue, vomiting. Severity of symptoms: At their worst the symptoms were moderate in the emergency department the symptoms are unchanged. The patient has not experienced similar symptoms in the past. reports began a new medication, unknown name, states small pills, and told "for her breast cancer", recently, and about 5-6 days ago woke up with diffuse rash, itchy, and getting worse. No other changes or new exposures. No sob/swelling/vomiting. . Historical: - Allergies: 04:34 Sulfa (Sulfonamide Antibiotics); 04:34 PENICILLINS; - Home Meds: 04:34 Unable to obtain [Active]; - PMHx: 04:34 Cancer, Breast; Depression; Hypertension; RA; - PSHx: 04:34 None; - Immunization history:: Adult Immunizations up to date. - Social history:: Smoking status: Patient uses tobacco products. - Ebola Screening: : Patient negative for fever greater than or equal to 101.5 degrees Fahrenheit, and additional compatible Ebola Virus Disease symptoms Patient denies exposure to infectious person. - Family history:: not pertinent. - Hospitalizations: : No recent hospitalization is reported. ROS: 04:48 Constitutional: Negative for fever, chills, and weight loss, Eyes: Negative for injury, rn pain, redness, and discharge, Neck: Negative for injury, pain, and swelling, Cardiovascular: Negative for chest pain, palpitations, and edema, Respiratory: Negative for shortness of breath, cough, wheezing, and pleuritic chest pain, Abdomen/GI: Negative for abdominal pain, nausea, vomiting, diarrhea, and constipation, MS/Extremity: Negative for injury and deformity, Skin: + itchy diffuse rash to body Neuro: Negative for headache, weakness, numbness, tingling, and seizure. Exam: 04:48 Constitutional: This is a well developed, well nourished patient who is awake, alert, rn and in no acute distress. Head/Face: Normocephalic, atraumatic. Eyes: Pupils equal round and reactive to light, extra-ocular motions intact. Lids and lashes normal. Conjunctiva and sclera are non-icteric and not injected. Cornea within normal limits. Periorbital areas with no swelling, redness, or edema. ENT: MMM without swelling or mucosal rash Cardiovascular: Regular rate and rhythm. No pulse deficits. Respiratory: No increased work of breathing, no retractions or nasal flaring. Skin: + diffuse urticarial rash with excoriations, no bullae, no skin sloughing, no petechiae. MS/ Extremity: Pulses equal, no cyanosis. Neurovascular intact. Full, normal range of motion. Equal circumference. Neuro: Awake and alert, GCS 15, oriented to person, place, time, and situation. Cranial nerves II-XII grossly intact. Motor strength 5/5 in all extremities. Sensory grossly intact. Cerebellar exam normal. Normal gait. Vital Signs: 04:38 BP 130 / 91; Pulse 87; Resp 18; Temp 98.3; Pulse Ox 97% ; Weight 84.82 kg; Height 5 ft. wh 6 in. (167.64 cm); 05:17 BP 140 / 80; Pulse 72; Resp 18; Pulse Ox 97% on R/A; wh 04:38 Body Mass Index 30.18 (84.82 kg, 167.64 cm) wh MDM: 04:38 Patient medically screened. rn 05:19 Differential diagnosis: allergic reaction. Data reviewed: vital signs, nurses notes, rn and as a result, I will discharge patient. Counseling: I had a detailed discussion with the patient and/or guardian regarding: the historical points, exam findings, and any diagnostic results supporting the discharge/admit diagnosis, the need for outpatient follow up, to return to the emergency department if symptoms worsen or persist or if there are any questions or concerns that arise at home. Response to treatment: the patient's symptoms have mildly improved after treatment, and as a result, I will discharge patient. Special discussion: I discussed with the patient/guardian in detail that at this point there is no indication for admission to the hospital. It is understood, however, that if the symptoms persist or worsen the patient needs to return immediately for re-evaluation. ED course: Will stop new medication and f/u with her doctor. . 11/16 04:45 Order name: IV Start; Complete Time: 05:01 rn Administered Medications: 05:09 Drug: SOLU-Medrol 125 mg Route: IVP; Site: right antecubital; 05:35 Follow up: Response: No adverse reaction 05:12 Drug: Pepcid 20 mg Route: IVP; Site: right antecubital; 05:35 Follow up: Response: No adverse reaction 05:15 Drug: Benadryl 12.5 mg Route: IVP; Site: right antecubital; 05:36 Follow up: Response: No adverse reaction Disposition: 11/16/19 05:20 Discharged to Home. Impression: Urticaria, unspecified. - Condition is Stable. - Discharge Instructions: Allergies, Adult, Hives. - Prescriptions for Hydroxyzine HCl 50 mg Oral Tablet - take 1 tablet by ORAL route every 8 hours As needed; 20 tablet. Prednisone 20 mg Oral Tablet - take 3 tablet by ORAL route once daily for 5 days; 15 tablet. - Medication Reconciliation Form, Thank You Letter, Antibiotic Education, Prescription Opioid Use form. - Follow up: Private Physician; When: As needed; Reason: Recheck today's complaints, Re-evaluation by your physician. - Problem is an ongoing problem. - Symptoms have improved. Signatures: Jorge Gonzalez MD MD rn Habalo, Winsy Corrections: (The following items were deleted from the chart) 05:37 05:20 11/16/2019 05:20 Discharged to Home. Impression: Urticaria, unspecified. Condition is Stable. Discharge Instructions: Allergies, Adult, Hives. Prescriptions for Hydroxyzine HCl 50 mg Oral Tablet - take 1 tablet by ORAL route every 8 hours As needed; 20 tablet, Prednisone 20 mg Oral Tablet - take 3 tablet by ORAL route once daily for 5 days; 15 tablet. and Forms are Medication Reconciliation Form, Thank You Letter, Antibiotic Education, Prescription Opioid Use. Follow up: Private Physician; When: As needed; Reason: Recheck today's complaints, Re-evaluation by your physician. Problem is an ongoing problem. Symptoms have improved. rn
[2019-11-16 05:49] VITALS: TEMP 98.3; O2SAT 97
[2019-11-16 05:50] VITALS: BP 140/80
== END 2019-11-16 05:37 | disposition home or self-care (01) ==
LOC: ER 04:23
DX: L50.9 Urticaria, unspecified (principal); I10 Essential (primary) hypertension; Z72.0 Tobacco use; Z88.0 Allergy status to penicillin; Z88.2 Allergy status to sulfonamides; Z85.3 Personal history of malignant neoplasm of breast
CPT/HCPCS: 96375; 96374; 99284; J1200; J2930